=== PATIENT | female | born 2000 | race Caucasian/White ===

== ENCOUNTER 2022-09-16 01:07 | Emergency (ER) | payer OTHER ==
[~2022-09-16] VITALS: Ht 172.7 cm; Wt 61.2 kg
[2022-09-16] MEDS ORDERED: ZYRTEC10 M3 PO (02:05)
[2022-09-16] MEDS ORDERED: PREDNISONE20 MG PO (02:05)
== END 2022-09-16 02:31 | disposition home or self-care (01) ==
LOC: ED 01:07
DX: Z91.018 Allergy to other foods (principal); L29.9 Pruritus, unspecified; T50.995A Adverse effect of other drugs, medicaments and biological substances, initial encounter
CPT/HCPCS: 96372; 99283; A9270; J1100; J1200

== ENCOUNTER 2023-09-20 19:54 | Emergency (ER) | payer OTHER ==
[~2023-09-20] VITALS: Ht 172.7 cm; Wt 61.7 kg
[~2023-09-20 19:54] MED LIST: PREDNISONE20 MG PO; ZYRTEC10 M3 PO
[2023-09-20 21:49] LABS: BASOPHILS 0.4 % (0-2); EOSINOPHILS 1.1 % (0-6); HEMOGLOBIN 14.2 g/dL (12.0-18.0); LYMPHOCYTES 52.7 % (24-44); MCH 30.7 (27-36); MCHC 33.8 g/dl (30-36); MCV 90.8 fl (81-99); MONOCYTES 7.7 % (0-12); NEUTROPHILS 38.1 % (39-80); PLATELET COUNT 267 K/uL (140-440); RBC 4.62 M/ul (4.3-5.7); RDW 13.3 (10.5-15.0)
[2023-09-20 22:03] LABS: ALBUMIN 4.5 g/dL (3.4-5.0); ALBUMIN/GLOBULIN RATIO 1.5 (1.1-2.4); ANION GAP 13.5 (7-21); BILIRUBIN, TOTAL 0.7 ng/dL (0.2-1.0); BUN/CREATININE RATIO 9.09 (6.0-28.6); CREATININE, SERUM 0.88 mg/dL (0.55-1.02); MAGNESIUM 1.9 mg/dL (1.8-2.4); POTASSIUM 3.5 mmol/L (3.5-5.1); PROTEIN, TOTAL 7.5 g/dL (6.4-8.2)
[2023-09-20 22:52] LABS: BILIRUBIN, URINE NEGATIVE (negative); BLOOD/HGB, URINE NEGATIVE (Negative); KETONE, URINE NEGATIVE (Negative); LEUK ESTERASE, URINE NEGATIVE (negative); NITRITE, URINE NEGATIVE (negative)
[2023-09-20 23:20] VITALS: BP 121/76
--- NOTE | 2023-09-21 06:35 | EKG ---
[facility] [address] [place], [place] [address] Signed Unusual P axis, possible ectopic atrial rhythm Septal infarct (cited on or before 24-AUG-2021) Abnormal ECG When compared with ECG of 24-AUG-2021 03:53, Ectopic atrial rhythm has replaced Sinus rhythm Confirmed by AKASH MAK MD ([id number]) on 09/21/2023 6:35:37 AM Electronically Signed By: AKASH MAK 09/21/23 0635 PATIENT NAME: MILES MALIK Electrocardiogram DATE OF : 89 PHYSICIAN: AKASH MAK REPORT #: [id number] REPORT IS CONFIDENTIAL AND NOT TO BE RELEASED WITHOUT AUTHORIZATION
== END 2023-09-20 23:25 | disposition home or self-care (01) ==
LOC: ED 19:54
PROVIDERS: Family Medicine
DX: R55 Syncope and collapse (principal)
CPT/HCPCS: 36415; 70450; 72125; 80053; 81003; 83735; 84703; 85025; 93005; 93010; J7121